=== PATIENT | female | born 1945 | race Hispanic/Latino ===

== ENCOUNTER 2018-11-15 05:30 | Inpatient (IN) | payer MEDICARE, OTHER ==
--- NOTE | 2018-11-07 17:12 | NUR ---
PATIENT HERE TODAY WITH HER GRANDSON EVE TO PREADMIT FOR HER SURGERY ON 11/15/18. SHE IS HAVING A RIGHT TOTAL KNEE REPLACEMENT. SHE IS ARMENIAN SPEAKING AND HER GRANDSON IS HELPING OUT WITH TRANSLATING DURING HER APPOINTMENT TODAY. SHE WILL REQUIRE A HONING MACHINE SET UP OPERATOR DURING HER STAY WITH US. SHE ATTENDED THE [facility] WHERE THEY TOLD HER AND HER FAMILY ABOUT THE SWING BED PROGRAM HERE AT THE HOSPITAL. SHE LIVES ALONE AND BOTHER HER SON AND GRANDSON WORK AND ARE NOT AVAILABLE OFTEN DURING THE DAY. SHE IS WILLING TO STAY AT THE [facility] IF NEEDED FOR REHAB ALSO. THERE IS A RAMP INTO HER HOME AND SHE HAS A 4 WHEELED WALKER AT HOME SHE USES. THERE IS A TUB/SHOWER BUT NO BARS TO HOLD ON TO. THEY WOULD LIKE PHYSICAL THERAPY SET UP WITH THE PHYSICAL THERAPY IN THE [facility] WHEN IT IS TIME. THIS INFORMATION WILL BE SENT TO DR PASCAL OFFICE AND CASE MANAGEMENT FOR FURTHER FOLLOW UP.
[~2018-11-15] VITALS: Ht 152.4 cm; Wt 90.7 kg
[~2018-11-15 05:30] MED LIST: ADVIL200 M1 PO; ASPIR-LOW81 MG PO; FLONASE ALLERG9.9 ML NAS; GLIPIZIDE XL2.5 MG PO; HYDROCODON-ACE1 EA10 PO; IPRAT-ALBUT 0.5-3 ML INH; LISINOPRIL5 MG PO; LOVASTATIN40 MG PO; MECLIZINE HCL25 MG PO; METFORMIN HCL1000 MG PO; NORCO 5-325 TA1 EACH PO; OMEPRAZOLE20 MG PO; PRAVASTATIN SOD40 MG PO; ZOFRAN4 MG PO
--- NOTE | 2018-11-15 11:54 | NUR ---
11/15/18 1154 Lucrecia Landry 1051 PT ARRIVED IN PACU AWAKE WITH NO C/O'S. BLOOD SUGAR 120 ON ARRIVAL. 1105 R KNEE XRAY DONE. ICE TO R KNEE PLACED PER DR ORDERS. 1115 JOSE WALSH AT BEDSIDE TRANSLATING. PT SITTING UP IN BED EATING JELLO AND CRACKERS. 1124 OXYCODONE 5MG PO GIVEN PER ANESTHESIA REQUEST BEFORE HEADING TO ROOM FOR PAIN CONTROL. 1135 PT MOVING FEET. NO C/O'S AT THIS TIME. 1140 TO ROOM 116. BED PLUGGED IN AND CALL LIGHT GIVEN TO PT. FAMILY AT BEDSIDE. REPORT GIVEN AT NURSES STATION TO JOSE MELLO.
--- NOTE | 2018-11-15 12:00 | NUR ---
New arrival to the floor from surgery. Pt alert and oriented x3. Pt montenegrin speaking only, family at bedside and translating. Pt denies pain at this time. Spinal resolving at L1. CMS intact to right lower leg. Corbin wrap intact to right leg, dressing CDI, Ice over incision. Bed alarm intact. Pt oriented to room and call light. Vital signs are stable, cpox intact, sat level 92% on RA. Family to remain with pt in room. Call light within reach. No needs.
--- NOTE | 2018-11-15 12:45 | NUR ---
In room with pt starting medication pass. Pt sitting up in bed conversing with family when she started to lose ability to speak to her daughter. Pt quit speaking to myself and daughter for several seconds, however eyes remained open. Pt unable to visually track this RN. Pt's breathing and pulse intact. Nurse and Provider assist requested immediately. Pt assisted to flat position. Dr. Lucas to bedside rapidly. Pt remained non verbal for an additional time during his assessment, however, there shortly after she regained ability to speak. Pt able to report she is ok and denies pain. stat EKG done and new order for tele placed. Pt NSR. Pt appeared to be back to baseline from her admit; speaking appropriately and approp visual tracking. vs at onset of symptoms; bp 154/90,p75 m106, sat level 95%. @1245 on ra vs post symptoms; bp 147/64, p73, m87, sat level 92% on ra @1250
--- NOTE | 2018-11-15 13:45 | NUR ---
Called and spoke with Dr. Child regarding pt's syncopal episode here on unit. Discussed with Dr. Child that Dr. Lucas consulted with the pt during this episode and did a stat EKG, also ordered pt to be monitored on tele. Dr. Child stated no new orders needed at this time.
--- NOTE | 2018-11-15 13:50 | NUR ---
PT AWAKE, ALERT AND ORITENTED X3, PT SPEAKING APPROP TO STAFF. VS STABLE, CPOX INTACT 94% AT THIS TIME. SPINAL RESOLVED. PT REPORTS TOLERABLE PAIN TO RIGHT KNEE. CMS INTACT, DRESSING CDI. PT TOLERATED LUNCH WELL. NO NEEDS AT THIS TIME. PERSONAL SUPPLIES AND CALL LIGHT WITHIN REACH. NO NEEDS.
--- NOTE | 2018-11-15 14:19 | NUR ---
MED REC COMPLETE
--- NOTE | 2018-11-15 15:02 | NUR ---
SPINAL RESOLVED. PT ALERT AND ORIENTED X3. CPOX INTACT, SAT LEVEL 94% ON RA, RESP EVEN AND NON LABORED. PT DENIES PAIN. CMS INTACT TO RIGHT KNEE. ICE OVER DRESSING. PT DENIES NEEDS AT THIS TIME. VS STABLE. NO NEEDS AT THIS TIME. FAMILY AT BEDSIDE. PT VOIDED RECENTLY.
--- NOTE | 2018-11-15 15:44 | EKG ---
[facility] [address] [place], [place] [address] Signed Normal sinus rhythm Otherwise normal ECG Confirmed by SHARMIN KOROMA MD ([id number]) on 11/15/2018 3:44:19 PM Electronically Signed By: SHARMIN KOROMA MD 11/15/18 1544 PATIENT NAME: DIAZ MIRELESDUKE Electrocardiogram DATE OF : 41 PHYSICIAN: SHARMIN KOROMA MD REPORT #: [id number] REPORT IS CONFIDENTIAL AND NOT TO BE RELEASED WITHOUT AUTHORIZATION
--- NOTE | 2018-11-15 16:19 | NUR ---
pt worked with physical therapy reports pain 7/10 after. medications administered
--- NOTE | 2018-11-15 17:32 | NUR ---
JAPANESE SPEAKING ONLY. FAMILY IN ROOM. A&OX3. PT TOLERATING DIET. STANDBY ASSIST WITH WALKER. WORKED WITH PT TODAY. SYCOPE EVENT TODAY, LASTED A COUPLE MINUTES. VS STABLE. BS CHECKS WITH SLIDING SCALE. SL WHEN TOLERATING PO. 1PA TO BR WITH WALKER.
--- NOTE | 2018-11-15 17:45 | NUR ---
PATIENT UP TO BSC AND BACK TO BED, 1PA FWW. FRESH WATER GIVEN. CALL LIGHT IN REACH. NO FURTHER NEEDS AT THIS TIME.
--- NOTE | 2018-11-15 18:04 | NUR ---
REPORT RECEIVED FROM JOSE MELLO. INTRODUCED MYSELF TO PT AND FAMILY.
--- NOTE | 2018-11-15 18:17 | NUR ---
ADMINISTERED 1 UNIT INSULIN. PT DENIES CONCERNS.
--- NOTE | 2018-11-15 19:12 | NUR ---
CHARGE NURSE ROUNDS. PT WITH EYES CLOSED, SATS READING 85 WITH CPOX. 2 L O2 PLACED BY DAY CHARGE NURSE. PT STIRRED, BUT DIDN'T WAKE. FAMILY AT BEDSIDE. QUESTIONS ANSWERED.
--- NOTE | 2018-11-15 19:25 | NUR ---
IN ROOM FOR REPORT, PT IS RESTING WITH EYES CLOSED ON 2LNC AND CPOX AT 90%. FAMILY IS IN THE ROOM WITH HER AT THIS TIME. CALL LIGHT IS CLOSE.
--- NOTE | 2018-11-15 20:44 | NUR ---
ASSESSED PT AND ADMINISTERED MEDICATIONS. PT DENIES NUMBNESS AND TINGLING AND DRESSING IS CDI. PT'S DAUGHTER IS IN THE ROOM AT THIS TIME. FRESH WATER AND A WARM BLANKET ARE IN PLACE AND PT DENIES NEEDS. CALL LIGHT IS WITHIN REACH.
--- NOTE | 2018-11-15 22:00 | NUR ---
PT IS RESTING WITH EYES CLOSED, RESPIRATIONS ARE EVEN AND NONLABORED ON 02 AND CPOX. DAUGHTER IS IN THE ROOM.
--- NOTE | 2018-11-15 22:58 | NUR ---
PT IS RESTING WITH EYES CLOSED, RESPIRATIONS ARE EVEN AND NONLABORED. CALL LIGHT IS WITHIN REACH. O2 AND CPOX ARE IN PLACE AND WNL.
--- NOTE | 2018-11-16 | NUR ---
ASSISTED PT TO THE BSC AND BACK TO BED. SHE DENIES PAIN AT THIS TIME AND FURTHER NEEDS. CALL LIGHT IS WITHIN REACH.
--- NOTE | 2018-11-16 02:11 | NUR ---
ASSISTED PT TO THE BSC AND BACK INTO BED. ADMINISTERED MEDICATIONS AND ENTERED VS & I&OS. PT DENIES PAIN AT THIS TIME AND FURTHER NEEDS. CALL LIGHT IS CLOSE.
--- NOTE | 2018-11-16 03:42 | NUR ---
PT IS RESTING WITH EYES CLOSED, RESPIRATIONS ARE EVEN AND NONLABORED ON 2LNC AND CPOX WNL. CALL LIGHT IS WITHIN REACH AND DAUGHTER IS IN THE ROOM.
--- NOTE | 2018-11-16 05:32 | NUR ---
PT IS RESTING WITH EYES CLOSED, RESPIRATIONS ARE EVEN AND NONLABORED ON CPOX AND O2. CALL LIGHT IS WITHIN REACH AND DAUGHTER IS IN ROOM.
--- NOTE | 2018-11-16 05:35 | NUR ---
PT AMBULATES 1PA WITH FWW. DURING THE NIGHT SHE JUST PIVOTED TO THE BSC. SHE DENIED PAIN WITH SCHEDULED TYLENOL AND TORADOL. SHE IS ON TELE #2 IN SR WITH HR IN 70'S. SHE IS ON CPOX AND WAS PLACED ON 2LNC WHILE SLEEPING BECAUSE SHE WOULD DESAT TO 88% RA. SHE IS ON 60G CARB DIET WITH ACCUCHECKS, BS AT HS WAS 157. DRESSING ON RIGHT KNEE HAS MEPILEX, GAUZE AND ACEWRAP IN PLACE AND IS CDI WITH ICE IN PLACE.
--- NOTE | 2018-11-16 06:41 | NUR ---
ASSISTED PT TO BSC AND BACK TO BED. FRESH ICE PACKS ON KNEE. PAIN MEDS ADMINISTERED AND PT DENIES FURTHER NEEDS. CALL LIGHT IS CLOSE AND FAMILY IS IN THE ROOM.
--- NOTE | 2018-11-16 07:00 | NUR ---
Pt resting supine in bed, eyes closed and respirations even and unlabored. Call light and h20 in reach. Pt appears to be sleeping comfortably. Bedside report received from JOSE Tiwari.
--- NOTE | 2018-11-16 07:50 | OR ---
[facility] [address] [facility] [address] [place], [place] [address] Signed DATE OF OPERATION: 11/15/2018 SURGEON: Onel Child MD PREOPERATIVE DIAGNOSIS: End-stage osteoarthritis, right knee. POSTOPERATIVE DIAGNOSIS: End-stage osteoarthritis, right knee. PROCEDURE PERFORMED: Right total knee arthroplasty. ANESTHESIA: Spinal with sedation. SPECIMENS AND COMPLICATIONS: There were no specimens or complications. TOURNIQUET TIME: About 85 minutes. IMPLANTS: An Attune size 5 and narrow PS femur, a size 4 fixed bearing tibial tray, a 7 mm PS size 5 poly, and a 32 mm poly patellar button. There were no intraoperative complications. WHAT WAS DONE: The patient was taken to the operating room. After anesthesia was induced and airway secured, the patient was positioned, prepped and draped in a routine sterile fashion. A straight anterior approach was made to the knee centered over the patella. Skin was divided sharply. Hemostasis was achieved with electrocautery. We then created a small medial flap and performed an anteromedial arthrotomy. The patella was turned on edge measured to be about 22 mm. Returned about 10 mm off the posterior aspect of the patella and made drill holes for a 32 mm all-poly patella. We then snap-fit the trial patella into place and had reconstituted the patellar height of 22 mm. We then removed the trial. The patella was then slid into the lateral recess. Following the prompts, we used the [employer] navigation system to digitize the distal end of the femur. We then resected the distal femur with removing 11 mm off the high side (lateral). This was done in neutral varus-valgus and about 3 degrees of flexion. We removed the distal femoral wafers. We then transitioned the navigation system to the proximal tibia again, Electronically Signed By: ONEL CHILD MD 11/16/18 0750 PATIENT NAME: DUKE BOWLES OPERATIVE REPORT DATE OF : 41 REPORT #: [id number] PHYSICIAN: ONEL CHILD MD PCP: Jeff Barrera DO REPORT IS CONFIDENTIAL AND NOT TO BE RELEASED WITHOUT AUTHORIZATION [facility] [address] [place], [place] [address] Signed following the computer prompts, digitizing the proximal tibia. We then resected the proximal tibia at about 4 mm off the medial side in neutral varus-valgus and 3 degrees of posterior slope per the Attune surgical protocol. We then removed the tibial wafer along with remnants of the medial and lateral meniscus and ACL. We then put the knee in full extension and the extension block fit nicely with a 6 mm poly insert. We then reflexed the knee, put the distal femoral sizing jig on the femur. The femur sized between a size 4 and a size 5. So we elected to put on a size 5 block. We then resected anteriorly, posteriorly and both chamfer cuts. All the bone fragments were removed. The notch cutting block was placed on the distal femur and the notch was cut out. We then placed the lamina smokehouse operator in the joint and removed the remnants of the medial and lateral menisci, ACL and PCL. We then placed the femoral trial on the distal femur and put a size 4 tibial tray on the proximal tibia with a 6 mm poly. The knee had excellent extension and had good range of motion and excellent stability throughout the range of motion. We marked the rotational alignment of the tibial tray. We then flexed the knee, drilled the lug holes for the femoral component and removed all of the trials. We then prepared the femur with a standard reamer and broach technique. The knee was copiously irrigated and meticulously dried. We then cemented the real components into place and held the knee in full extension while the cement cured with a size six trial with the 6 mm size [address]. After the cement had cured, the knee was examined and had a gist a millimeter of laxity in the mid range and in flexion. We therefore re-trialed it with a 7 mm size 5 plastic component and again still had full extension and excellent balance in flexion and extension in the mid range. We therefore placed a 7 mm size 5 PS poly on the tibial tray and snap-fitted into place. The knee was copiously irrigated and drained. Marginal cementophytes were again sought but none were found. The knee was then closed in a standard fashion. Sterile dressings were applied and the patient was awakened, taken to recovery room where she arrived in stable condition. Counts were correct and antibiotic protocols were followed. Onel Child MD WFB/MODL /[id number] Copies: Electronically Signed By: ONEL CHILD MD 11/16/18 0750 PATIENT NAME: DUKE BOWLES OPERATIVE REPORT DATE OF : 41 REPORT #: [id number] PHYSICIAN: ONEL CHILD MD PCP: Jeff Barrera DO REPORT IS CONFIDENTIAL AND NOT TO BE RELEASED WITHOUT AUTHORIZATION [facility] [address] [facility] [place], [place] [address] Signed ~ Electronically Signed By: ONEL CHILD MD 11/16/18 0750 PATIENT NAME: DIAZ MIRELESEMETERIO OPERATIVE REPORT DATE OF : 41 REPORT #: [id number] PHYSICIAN: ONEL CHILD MD PCP: Jeff Barrera DO REPORT IS CONFIDENTIAL AND NOT TO BE RELEASED WITHOUT AUTHORIZATION
--- NOTE | 2018-11-16 08:18 | NUR ---
Patient is awake family in room, daughter ordered Patient breakfast. fresh water was given. call light in reach.
--- NOTE | 2018-11-16 08:32 | NUR ---
Pt sitting up in bed, eating breakfast. pt denies pain or nausea. call light and h20 in reach. IV ssaline locked as pt is tolerating oral intake well. Meds administered -see emar. Family at bedside.
--- NOTE | 2018-11-16 10:55 | NUR ---
PT SITITNG UP IN BED VISITING WITH FAMILY MEMBERS AT BEDSIDE. CALL LIGHT AND H2O IN REACH. PT REPORTS 6/10 PAIN TO RIGHT LE SO PRN PO OXYCODONE ADMINISTERED -SEE EMAR. LLE APPEARS TO HAV SCANT AMOUNT OF SS DRAINAGE NOTED TO A SMALL SCAB (APPROX 1.CX1CM IN SIZE). NO REDNESS OR SWELLING NOTED TO AFFECTED AREA ABOVE ANTERIOR LEFT ANKLE. AREA CLEANSED WITH NS AND STERILE GUAZE AND LIGHTLY WRAPPED WITH COBAN. PT DENIES FURTHER NEEDS/CONCERNS. CALL LIGHT IN REACH.
--- NOTE | 2018-11-16 13:30 | NUR ---
PT SITTING UP IN BED, ALERT AND ORIENTED, STATES PAIN IS TOLERABLE AT THIS TIME AND DENIES SOB OR NAUSEA. ICE WATER AND CALL LIGHT IN REACH.
--- NOTE | 2018-11-16 14:13 | NUR ---
pt reports pain 6-7/10 pain at this time administered 15mg i.v. tordol and 650mg po tylenol scheduled at this time. will monitor for further needs.
--- NOTE | 2018-11-16 15:03 | NUR ---
PT RESTING IN BED ALERT AND ORIENTED. PT STATES PAIN IS TOLERABLE. ASSESSMENT COMPLETED. CALL LIGHT AND H20 IN REACH. PT DENIES NEEDS/CONCERNS. FAMILY AT BEDSIDE.
--- NOTE | 2018-11-16 17:15 | NUR ---
PT SITTING UP IN HIGH FOWLERS POSITION EATING DINNER, PT DENIES PAIN, SOB OR NAUSEA. PT DENIES NEEDS OR CONCERNS AND APPEARS TO BE IN NO DISTRESS. CALL LIGHT, H2O AND PERSONAL ITEMS IN REACH. FAMILY AT BEDSIDE.
--- NOTE | 2018-11-16 19:27 | NUR ---
SHIFT REPORT RECEIVED FROM DAYSMTFT JOSE BAKER AT BEDSIDE. PT AWAKE AND RESTING IN BED. CPOX IN PLACE, 1LNC NOTED. 02 SAT95%, HR 99. NO DISTRESS NOTED, PT APPEARS COMFORTABLE. FAMILY IN ROOM. DRESSING TO RIGHT HIP CDI. CALL LIGHT IN REACH, PT DENIES NEEDS.
--- NOTE | 2018-11-16 20:05 | NUR ---
SCHEDULED TYLENOL AND TORADOL ADMINISTERED. PT REPORTS 10/10 TIME. NO FACIAL GRIMACING OR MOANING NOTED. FAMILY IN ROOM. IV PATENT, BLOOD RETURN NOTED. PT DENIES ADDITIONAL NEEDS. TRANSLATION PROVIDED BY PT'S FRIEND. CALL LIGHT IN REACH.
--- NOTE | 2018-11-16 22:00 | NUR ---
ASSESSMENT COMPLETE. PT A/OX4. RATES PAIN 4-5/10. DRESSING IS CDI, NO SHADOWING OR DRAINAGE NOTED. WILL MONITOR. PT IS PRIMARILLY UPPER SORBIAN SPEAKING, FAMILY IN ROOM. CPOX IN PLACE, 1LNC IN PLACE. O2 SAT AND HR WNL. NO DISTRESS NOTED. PT DENIES NAUSEA, BOWEL TONES ACTIVE. CALL LIGHT IN REACH. NO FURTHER NEEDS.
--- NOTE | 2018-11-16 22:03 | NUR ---
PT IN BED, WITH AT BEDSIDE. WAS INCONT OF LARGE AMOUNT URINE PRIOR TO GETTING UP TO THE BEDSIDE COMMODE. VOIDED IN COMMODE WELL. INCONT CARE PROVIDED, UNDERGARMENT PLACED, WITH 2 STAFF, PT WAS ASSISTED UP WITH WALKER, MODERATE AMOUNT ASSISTANCE, CUEING AND PT ABLE TO GET TO BED, REQUIRED ASSISTANCE IN GETTING LEGS INTO BED. DURING TRANSFERS, PT WAS WITHOUT OXYGEN. ONCE IN BED, CPOX PLACED, STATS AT 85 ON RA, OXYGEN PLACED. RIGHT KNEE AGUSTO WRAP AND GAUZE PADDING, SOAKED WITH URINE. MEPLEX IN PLACE, DRY. REWRAPPED WITH GAUZE PADDING AND ACEWRAP. FOOT SCD'S IN PLACE, FRESH ICE PLACED. PT WANTING TO BEND KNEE TO SLEEP. ABLE TO GIVE INSTRUCTIONS TO PT IN FRENCH TO KEEP LEG STRAIGHT IF SHE WANTED TO LAY ON HER SIDE.
--- NOTE | 2018-11-17 00:15 | NUR ---
PT CALLED, NEEDED COMMODE. WITH ASSIST OF ANOTHER RN, PT TO BSC, BUT COULDN'T WAIT AND STARTED URINATING BEFORE SITTING ON COMMODE. PT CLEANED, PUT BACK TO BED, ABLE TO SELF ADJUST WITH HELP. FOOT PUMPS ON, ICE ON R KNEE. O2 IN PLACE
--- NOTE | 2018-11-17 00:35 | NUR ---
PER REQUEST OF JOSE VARGAS I RECHECKED PT'S TEMP.
--- NOTE | 2018-11-17 01:27 | NUR ---
WITH THE HELP OF JOSE VARGAS WE HELPED PT TO THE BSC AND BACK TO BED WITH HER FWW. SCD'S BACK ON, PULSE OX AND O2 WELL. BEDSIDE TABLE AND CALL LIGHT IN REACH. PT NEEDS NOTHING MORE AT THIS TIME.
--- NOTE | 2018-11-17 02:05 | NUR ---
PULSE OX SOUNDING, PT WITH SATS IN 82'S, ADJUSTED PT FINGER PROBE, SATS TO 84, INCREASED 02 TO 2.5, AFTER 2-3 MIN SATS TO 92. REMAINS AT BEDSIDE.
--- NOTE | 2018-11-17 02:22 | NUR ---
ASSESSMENT COMPLETE, NO NEW CONCERNS. PT A/O, RATES PAIN 10. SCHEDULED TYLENOL AND TORADOL ADMINISTERED. DRESSING TO RIGHT KNEE CDI, NO SHADOWING OR DRAINAGE NOTED. WILL MONITOR. FRESH ICE IN PLACE. CMS IN EXTREMITIES X4 INTACT. PT REPORTS NUMBNESS AND TINGLING TO EXTREMITIES X4, BASELINE PER PT. PT ON 2LNC, CPOX IN PLACE. O2 SAT 91%, HR 93. NO DISTRESS NOTED, RR WNL. IN ROOM. PT DENIES FURTHER NEEDS, CALL LIGHT IN REACH.
--- NOTE | 2018-11-17 05:01 | NUR ---
PT RESTING IN BED, 2LNC IN PLACE. EYES CLOSED, RR WNL, NO DISTRESS NOTED. CPOX IN PLACE, 02 SAT 92%, HR 75. CALL LIGHT IN REACH, IN ROOM.
--- NOTE | 2018-11-17 05:51 | NUR ---
VITALS AND I&OS DONE AND CHARTED. WITH THE HELP OF JOSE VARGAS WE HELPED HER TO THE BSC AND BACK TO BED. BEDSIDE TABLE AND CALL LIGHT IN REACH. FRESH ICE WATER GIVEN.
--- NOTE | 2018-11-17 06:03 | NUR ---
PT SLEPT ON AND OFF THROUGHOUT THE NIGHT. VSS, PT ON 1L NC AT THIS TIME. CPOX IN PLACE. A/OX4, SLOVAK SPEAKING PRIMARILLY. FAMILY IN ROOM. DRESSING INTACT CDI, 2PA WITH FWW TO BSC. 60 G CARB DIET, SCHEDULED BS CHECKS, NO INSULIN REQUIRED. VOIDING QS, NO BM THIS SHIFT.
--- NOTE | 2018-11-17 06:57 | NUR ---
pt reports 6/10 pain. 10 mg oxycodone administered. pt denies additional needs, in room. call light in reach. cpox in place, pt on 2lnc, o2 sat 98%, hr 84.
--- NOTE | 2018-11-17 07:10 | NUR ---
PT RESTING SUPINE IN BED EYES CLOSED AND RESPIRATION EVEN AND UNLABORED. PT APPEARS TO BE SLEEPING COMFORTABLY. CALL LIGHT AND H20 IN REACH. FAMILY AT BEDSIDE.
--- NOTE | 2018-11-17 08:44 | NUR ---
PT SITTING UP IN BED EATING BREAKFAST AND VISITING WITH FAMILY. ASSESSMENT COMPLETED. PT STATES SHE HAS VERY LITTLE PAIN THAT IS TOLERABLE SCHEDULED MEDS ADMINISTERED -SEE EMAR. CALL LIGHT AND H20 IN REACH. PT DENIES FURTHER NEEDS/CONCERNS.
--- NOTE | 2018-11-17 11:52 | NUR ---
PT RESTING IN BED, VISITING WITH FAMILY, PT DENIES PAIN, NAUSEA OR SOB. CALL LIGHT AND H20 IN REACH. PT REQUESTS ASSISTANCE GETTING UP TO TIMOTHY RAE CNA IN TO ASSIST PATIENT. NO FURTHER NEEDS/CONCERNS VOICED.
--- NOTE | 2018-11-17 15:42 | NUR ---
PT RESTING SUPINE IN BED, PT DENIES PAIN OR SOB AND IS SATTING IN MID 90'S ON RA. PT RECENTLY HAD SHOWER AND DR ALLEN WAS IN TO SEE PATIENT AND REMOVED DSG TO RIGHT KNEE. LEFT ANKLE DSG IS ALSO OFF AND SHALONDA DORSEY STATES PT RECENTLY HAD A SHOWER. SCAB NO LONGER PRESENT TO ARE AABOVE LEFT ANKLE AND WOUND IS VISABLE IN SIZE OF PRIOR SCAB APPROX 1.5CM X 1CM. AREA CLEANSED WITH NS AND ALLYVN DSG APPLIED. PT DENIES FURHTER NEEDS/CONCERNS. ICE APPLIED TO RIGHT KNEE AND PT PROVIDED WITH SHEET. CALL LIGHT AND H20 IN REACH.
--- NOTE | 2018-11-17 16:37 | NUR ---
FAXED DISCHARGE INFORMATION TO [facility]. CONFIRMATION IN CHART.
--- NOTE | 2018-11-17 16:58 | NUR ---
DR ALLEN NOTIFIED THAT OUR HOSPITALIST DR KOROMA HAS SIGNED OFF ON PATIENT AND WAS INFORMED THAT PT HAS OPEN WOUND ABOVE LEFT ANKLE THAT WAS CLEANSED WITH WOUND CLEANSER AND ALLYVN DSG APPLIED. NO NEW ORDERS RECEIVED.
--- NOTE | 2018-11-17 17:49 | NUR ---
PT SITTING UP IN BED EATING DINNER, PT DENIES PAIN, NASUEA OR SOB AT THIS TIME. CALL LIGHT AND H20 IN REACH. PT DENIES NEEDS OR CONCERNS. FAMILY AT BEDSIDE.
--- NOTE | 2018-11-17 19:20 | NUR ---
SHIFT REPORT RECEIVED FROM DAYSHIFT JOSE BAKER AT BEDSIDE. PT AWAKE AND RESTING IN BED, PT ONRA, RR WNL. NO DISTRESS NOTED. FAMILY IN ROOM. INCISION OPEN TO AIR, DRY WITH SURGICAL TAPE IN PLACE. PT DENIES NEEDS AT THIS TIME, CALL LIGHT IN REACH. PT PRIMARILY TURKISH SPEAKING, DAUGHTER WILL STAY THE NIGHT WITH PT.
--- NOTE | 2018-11-17 20:15 | NUR ---
ASSESSMENT COMPLETE, SCHEDULED MEDICATIONS GIVEN (SEE EMAR). PT REPORTS 2/10 PAIN, APPEARS COMFORTABLE. A/OX4, VSS. PT ON RA, O2 SAT WNL. NO DISTRESS NOTED. SURGICAL INCISION OPEN TO AIR, SURIGICAL TAPE IN PLACE, DRY. CMS INTACT. SCHEDULED ACCU CHECK RESULT OF 168, 1 UNIT OF INSULIN SS ADMINISTERED. PT DENIES ADDITIONAL NEEDS. CALL LIGHT IN REACH, FAMILY IN ROOM.
--- NOTE | 2018-11-17 20:48 | NUR ---
VITALS DONE AND CHARTED. INFORMED JOSE VARGAS OF TEMP. BEDSIDE TABLE AND CALL LIGHT IN REACH.
--- NOTE | 2018-11-17 22:03 | NUR ---
HELPED PT TO THE BSC AND BACK TO BED WITH HER FWW. SCD'S AND PULSE OX PLUGGED BACK IN. FRESH WATER GIVEN BEDSIDE TABLE AND CALL LIGHT IN REACH.
--- NOTE | 2018-11-17 23:15 | NUR ---
ROUNDING ON PT. RN MICK ASSISTING PT BACK TO BED FROM [facility]. PT ON RA, O2 SAT 92%, HR 80'S. NO DISTRESS NOTED. PT RESTING IN BED AND APPEARS COMFORTABLE. DENIES NEEDS OR CONCERNS AT THIS TIME. CALL LIGHT IN REACH, DAUGHTER IN ROOM.
--- NOTE | 2018-11-18 01:09 | NUR ---
PT ON RA, O2 SAT IN UPPER 80'S. PT RESTING IN BED FLAT. THIS RN ASSISTED PT WITH REPOSITIONING. HOB ELEVATED AT THIS TIME. RR WNL, PT APPEARS COMFORTABLE. NO DISTRESS NOTED. O2 SAT NOW 93%, HR 80'S. FRESH ICE TO RIGHT HIP. NO FURTHER NEEDS, CALL LIGHT IN REACH.
--- NOTE | 2018-11-18 02:30 | NUR ---
SCHEDULED TYLENOL AND TORADOL ADMINISTERED. PT REPORTS 5/10 PAIN. BM X1 NOTED. CHESTER CARE COMPLETED, NEW ATTENDS IN PLACE. PT RESTING IN BED. O2 SAT IN 90'2 ON RA AT THIS TIME. CALL LIGHT IN REACH, FAMILY IN ROOM. PT DENIES ADDITIONAL NEEDS.
--- NOTE | 2018-11-18 02:43 | NUR ---
WITH THE HELP OF JOSE VARGAS WE HELPED PT TO THE BSC AND BACK TO BED WITH HER FWW. SCD'S AND PULSE OX HOOKED BACK UP. BEDSIDE TABLE AND CALL LIGHT IN REACH. PT NEEDS NOTHING MORE AT THIS TIME.
--- NOTE | 2018-11-18 06:06 | NUR ---
VSS AND RECORDED ALONG WITH I&O'S. ASSESSMENT COMPLETE. NO NEW CONCERNS. INCISION OPEN TO AIR, SURGICAL TAPE NOTED. RED AND SLIGHTLY WARM TO THE TOUCH. FRESH ICE TO RIGHT KNEE. PT DENIES ADDITIONAL NEEDS, CALL LIGHT IN REACH.
--- NOTE | 2018-11-18 06:11 | NUR ---
PT SLEPT ON AND OFF. PAIN CONTROLLED WITH SCHEDULED PAIN MEDICATIONS. PRN ALSO AVAILABLE. VSS, PT ON RA, RR WNL. INCISION OPEN TO AIR WITH CLEAR SURGICAL TAPE. NO DRAINAGE NOTED, ICE PRN. 1PA WITH FW TO BSC. PT ORDERS. BM X2, PT MISSED HAT FOR VOIDING. APPEARS TO BE QS. GU[place]ALAN SPEAKING PRIMARILLY, FAMILY IN ROOM. USES CALL LIGHT APPROPERAITELY.
--- NOTE | 2018-11-18 07:20 | NUR ---
PATIENT RESTING IN BED. DAUGHTER IN ROOM. PATIENT GOES TO USE BATHROOM. PATIENT USES A WALKER. ONE PERSON ASSISTING. PATIENT BACKS TO BED. NO OTHER NEEDS AT THIS TIME
--- NOTE | 2018-11-18 09:00 | NUR ---
PT RESTING SUPINE IN SEMI FOWLERS POSITION, RESPIRATIONS EVEN AND UNLABORED. PT REPORTS PAIN LEVEL HAS DECREASED AND IS TOLERABLE. 2 ICE PACKS APPLIED TO RIGHT KNEE WHICH IS WARM WITH SOME SWELLING. CMS WNL TO RLE. ASSESSMENT COMPLETED. SCHEDULED MEDS ADMINISTERED. H2O IN REACH. PT DENIES FURHTER NEEDS/CONCERNS.
--- NOTE | 2018-11-18 09:14 | NUR ---
PATIENT RESTING IN BED. RN, SON AND DAUGHTER IN ROOM. VITAL SIGNS AND I&O DONE. WATER GIVEN. CALL LIGHT WITHIN REACH. NO OTHER NEEDS AT THIS TIME
--- NOTE | 2018-11-18 10:45 | NUR ---
PT BACK TO ROOM AFTER WORKING WITH PT. PT RESTING RECLINED IN CHAIR WITH 2 ICE PACKS TO RIGHT KNEE. CALL LIGHT AND H20 IN REACH. PT SATTING IN LOW 90'S ON ROOM AIR AND DENIES SOB. FAMILY AT BEDSIDE AND PT STATES HER PAIN LEVEL IS TOLERABLE. NO NEEDS/CONCERNS VOICED.
--- NOTE | 2018-11-18 13:02 | NUR ---
PATIENT SITTING UP IN BED. SON, DAUGHTER AND VISITORS IN ROOM. VITAL SIGNS AND I&O DONE. CALL LIGHT WITHIN REACH. NO OTHER NEEDS AT THIS TIME
--- NOTE | 2018-11-20 10:51 | DS ---
[facility] [address] [place], [place] [address] Signed ADMISSION DATE: 11/15/2018 DISCHARGE DATE: 11/18/2018 FINAL DIAGNOSES AT THE TIME OF DISCHARGE: 1. End-stage osteoarthritis, right knee. 2. Diabetes. CHIEF COMPLAINT: Right knee pain. HISTORY OF PRESENT ILLNESS: The patient is a 73-year-old female with end-stage osteoarthritis in both knees. She has gotten to the point where she does not get any relief with conservative management and she presented for elective total knee replacement on the right. HOSPITAL COURSE: The patient was admitted to Day Surgery on November 15, 2018. She was taken to the operating room where under spinal anesthesia, she underwent a right total knee arthroplasty using the Attune Knee System with a posteriorly stabilized knee. Postoperatively, she has done well. She has progressed through physical therapy and has met all of her therapy parameters. Her diabetes was managed by the hospitalist who saw her in consultation. At the present time, she has met all of her therapy goals. She is being discharged to [facility] in [place], [place], at the request of the family because it is closer to where they live. We will have her continue therapy as an inpatient on the total knee program. She is being discharged on oxycodone 5 mg and tramadol 50-100 mg to be taken for pain. However, continue on Xarelto for DVT prophylaxis. Her incision was clean and dry, and her hematological parameters are stable. We will have her follow up with us in four weeks. MD SEEMA Santos/KARY /[id number] Electronically Signed By: SONYA ALLEN MD 11/20/18 1051 PATIENT NAME: DUKE BOWLES DISCHARGE SUMMARY DATE OF : 41 REPORT #: [id number] PHYSICIAN: SONYA ALLEN MD PCP: Jeff Barrera DO REPORT IS CONFIDENTIAL AND NOT TO BE RELEASED WITHOUT AUTHORIZATION [address] [place] [address] Signed Copies: ~ Electronically Signed By: SONYA ALLEN MD 11/20/18 1051 PATIENT NAME: DUKE BOWLES DISCHARGE SUMMARY DATE OF : 41 REPORT #: [id number] PHYSICIAN: SONYA ALLEN MD PCP: Jeff Barrera DO REPORT IS CONFIDENTIAL AND NOT TO BE RELEASED WITHOUT AUTHORIZATION
== END 2018-11-18 14:10 | disposition home or self-care (01) | DRG 470 ==
LOC: DS 05:30 → MS 05:30 → DS 07:25 → EDSTATUS 07:45 → DS 07:45 → MS 11:30 → DS 11:30 → MS 11-18 14:10
PROVIDERS: ADMIT Orthopaedic Surgery
PROC: 8E0YXBZ Computer Assisted Procedure of Lower Extremity (ICD-10-PCS; 2018-11-15)
PROC: 0SRC0J9 Replacement of Right Knee Joint with Synthetic Substitute, Cemented, Open Approach (ICD-10-PCS; principal; 2018-11-15 07:45)
DX: M17.11 Unilateral primary osteoarthritis, right knee (principal); R55 Syncope and collapse; I10 Essential (primary) hypertension; E11.9 Type 2 diabetes mellitus without complications; E78.5 Hyperlipidemia, unspecified; Z88.5 Allergy status to narcotic agent; Z79.84 Long term (current) use of oral hypoglycemic drugs; Z79.82 Long term (current) use of aspirin; Z79.899 Other long term (current) drug therapy
CPT/HCPCS: 01402; 36415; 73560; 80048; 85025; 93005; 93010; 94762; 97110; 97116; 97161; 97163; 97530; C1713; C1776; J0690; J1100; J1815; J1885; J2250; J2550; J2704; J2795; J3010; J7120